=== PATIENT | male | born 1985 | race African-American/Black ===

== ENCOUNTER 2018-09-30 12:29 | Emergency (ER) | payer SELFPAY ==
[~2018-09-30] VITALS: Ht 180.3 cm; Wt 88.5 kg
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
[2018-09-30] MEDS ORDERED: IBUPROFEN 400 MG TABLET. PO ONE (13:30)
[2018-09-30] MEDS ORDERED: CYCL-331 PO (13:32)
[2018-09-30] MEDS ORDERED: NAPR-683 PO (13:32)
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
[2018-09-30 13:45] VITALS: BP 126/65
== END 2018-09-30 13:56 | disposition home or self-care (01) ==
LOC: ER 12:29
DX: S09.90XA Unspecified injury of head, initial encounter (principal); S29.012A Strain of muscle and tendon of back wall of thorax, initial encounter; V49.49XA Driver injured in collision with other motor vehicles in traffic accident, initial encounter; Y93.I9 Activity, other involving external motion; Y92.488 Other paved roadways as the place of occurrence of the external cause; Y99.8 Other external cause status
CPT/HCPCS: 70450; 72072; 99284-25